=== PATIENT | male | born 1975 | race Caucasian/White ===

== ENCOUNTER 2016-11-01 18:54 | Emergency (ER) | payer OTHER ==
[2016-11-01 19:08] VITALS: BP 132/82; PULSE 64; RESP 16; TEMP 97.9; O2SAT 94
--- NOTE | 2016-11-01 19:08 | EDPHY ---
H & P Time Seen by Provider: 11/01/16 19:03 HPI/ROS: CHIEF COMPLAINT: LEFT ANKLE PAIN HISTORY OF PRESENT ILLNESS: The patient is a 41-year-old man who comes to the emergency department complaining of left ankle pain to the medial malleolus. He states that 1 week ago he was lifting a heavy pool filter when it fell and glanced off the medial malleolus. He had some bruising at the time. He has continued to walk. He is becoming more concerned because it does not feel better evern after a week. Normal sensation and pulses distally. No tingling or numbness. Denies other injuries. REVIEW OF SYSTEMS: Constitutional: denies: chills, fever, recent illness, recent injury EENTM: denies: blurred vision, double vision, nose congestion Respiratory: denies: cough, shortness of breath Cardiac: denies: chest pain, irregular heart rate, lightheadedness, palpitations Gastrointestinal/Abdominal: denies: abdominal pain, diarrhea, nausea, vomiting, blood streaked stools Genitourinary: denies: dysuria, frequency, hematuria, pain Musculoskeletal: See HPI Skin: denies: lesions, rash, jaundice, bruising Neurological: denies: headache, numbness, paresthesia, tingling, dizziness, weakness Hematologic/Lymphatic: denies: blood clots, easy bleeding, easy bruising Immunologic/allergic: denies: HIV/AIDS, transplant EXAM: GENERAL: Well-appearing, well-nourished and in no acute distress. HEAD: Atraumatic, normocephalic. EYES: Pupils equal round and reactive to light, extraocular movements intact, sclera anicteric, conjunctiva are normal. ENT: TMs normal, nares patent, oropharynx clear without exudates. Moist mucous membranes. NECK: Normal range of motion, supple without lymphadenopathy or JVD. LUNGS: Breath sounds clear to auscultation bilaterally and equal. No wheezes rales or rhonchi. HEART: Regular rate and rhythm without murmurs, rubs or gallops. ABDOMEN: Soft, nontender, normoactive bowel sounds. No guarding, no rebound. No masses appreciated. BACK: No CVA tenderness, no spinal tenderness, step-offs or deformities EXTREMITIES: Mild bruising distal to the medial malleolus of the left ankle. Minimal tenderness to the malleolus. No abrasion or laceration. No foot pain or tenderness. Ambulates without difficulty. NEUROLOGICAL: Cranial nerves II through XII grossly intact. Normal speech, normal gait. 5/5 strength, normal movement in all extremities, normal sensation PSYCH: Normal mood, normal affect. SKIN: Warm, dry, normal turgor, no visible rashes or lesions. Source: Patient Exam Limitations: No limitations - Personal History Current Tetanus/Diphtheria Vaccine: Yes - Medical/Surgical History Hx Asthma: No Hx Chronic Respiratory Disease: No Hx Diabetes: No Hx Cardiac Disease: No Hx Renal Disease: No Hx Cirrhosis: No Hx Alcoholism: No Hx HIV/AIDS: No Hx Splenectomy or Spleen Trauma: No - Family History Significant Family History: No pertinent family hx - Social History Smoking Status: Current some day smoker Alcohol Use: Sober Drug Use: None Constitutional: Initial Vital Signs Temperature (C) 36.6 C 11/01/16 18:55 Heart Rate 64 11/01/16 18:55 Respiratory Rate 16 11/01/16 18:55 Blood Pressure 132/82 H 11/01/16 18:55 O2 Sat (%) 94 11/01/16 18:55 O2 Delivery Mode Room Air Allergies/Adverse Reactions: No Known Allergies Allergy (Unverified 11/01/16 19:10) Home Medications: Medication Instructions Recorded NK [No Known Home Meds] 11/01/16 Medical Decision Making - Diagnostics Imaging: Discussed imaging studies w/ coater associate Radiologist ED Course/Re-evaluation: Discussed the x-ray results. The patient is reassured. I offered a wrap her pain medication which she declines. He will take ibuprofen. Discussed indications for returning. Differential Diagnosis: Partial list of the Differential diagnosis considered include but were not limited to; contusion, sprain, fracture and although unlikely based on the history and physical exam, I also considered vascular injury, nerve injury. I discussed these differential diagnoses and the plan with the patient as well as the usual and expected course. The patient understands that the diagnosis is provisional and that in medicine we are not always correct and that further workup is often warranted. Usual and customary warnings were given. All of the patient's questions were answered. The patient was instructed to return to the emergency department should the symptoms at all worsen or return, otherwise to followup with the physician as we discussed. Departure - Departure Disposition: Home, Routine, Self-Care Clinical Impression: Contusion of left ankle Qualifiers: Encounter type: initial encounter Qualified Code(s): S90.02XA - Contusion of left ankle, initial encounter Condition: Fair Instructions: Foot Contusion (ED) Referrals: Chrissie Kendall MD [[facility] [place]] - As per Instructions
== END 2016-11-01 19:35 | disposition home or self-care (01) ==
LOC: CED 18:54
DX: S90.02XA Contusion of left ankle, initial encounter (principal); F17.200 Nicotine dependence, unspecified, uncomplicated; W20.8XXA Other cause of strike by thrown, projected or falling object, initial encounter
CPT/HCPCS: 73610-PO

== ENCOUNTER → 2016-12-30 | Outpatient (CLI) | payer OTHER | LOC: FIMAGING 09:13 | PROVIDERS: ATTEND Internal Medicine Hematology & Oncology | DX: R19.09 Other intra-abdominal and pelvic swelling, mass and lump (principal); Z85.820 Personal history of malignant melanoma of skin ==

== ENCOUNTER 2017-07-29 18:08 | Emergency (ER) | payer OTHER ==
[2017-07-29 18:19] VITALS: BP 133/85
--- NOTE | 2017-07-29 18:25 | EDPHY ---
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 He does not think that he hit the bone. Bleeding is controlled. This happened at work just prior to arrival. REVIEW OF SYSTEMS: Constitutional: denies: chills, fever, recent illness, recent injury EENTM: denies: blurred vision, double vision, nose congestion Respiratory: denies: cough, shortness of breath Cardiac: denies: chest pain, irregular heart rate, lightheadedness, palpitations Gastrointestinal/Abdominal: denies: abdominal pain, diarrhea, nausea, vomiting, blood streaked stools Genitourinary: denies: dysuria, frequency, hematuria, pain Musculoskeletal: denies: joint pain, muscle pain Skin: See HPI Neurological: denies: headache, numbness, paresthesia, tingling, dizziness, weakness Hematologic/Lymphatic: denies: blood clots, easy bleeding, easy bruising Immunologic/allergic: denies: HIV/AIDS, transplant EXAM: GENERAL: Well-appearing, well-nourished and in no acute distress. HEAD: Atraumatic, normocephalic. EYES: Pupils equal round and reactive to light, extraocular movements intact, sclera anicteric, conjunctiva are normal. ENT: TMs normal, nares patent, oropharynx clear without exudates. Moist mucous membranes. NECK: Normal range of motion, supple without lymphadenopathy or JVD. LUNGS: Breath sounds clear to auscultation bilaterally and equal. No wheezes rales or rhonchi. HEART: Regular rate and rhythm without murmurs, rubs or gallops. ABDOMEN: Soft, nontender, normoactive bowel sounds. No guarding, no rebound. No masses appreciated. BACK: No CVA tenderness, no spinal tenderness, step-offs or deformities EXTREMITIES: Normal range of motion, no pitting or edema. No clubbing or cyanosis. NEUROLOGICAL: Cranial nerves II through XII grossly intact. Normal speech, normal gait. 5/5 strength, normal movement in all extremities, normal sensation PSYCH: Normal mood, normal affect. SKIN: Puncture wound to left index finger over the distal phalanx fat pad. No deformity. No visible foreign body. Source: Patient Exam Limitations: No limitations - Personal History Current Tetanus Diphtheria and Acellular Pertussis (TDAP): Yes Tetanus Vaccine Date: within 5 serafin - Medical/Surgical History Hx Asthma: No Hx Chronic Respiratory Disease: No Hx Diabetes: No Hx Cardiac Disease: No Hx Renal Disease: No Hx Cirrhosis: No Hx Alcoholism: No Hx HIV/AIDS: No Hx Splenectomy or Spleen Trauma: No Other PMH: I. HERNIAS, REMOVAL of MELANOMA L PRE TIBIA and BACK AREA - Family History Significant Family History: No pertinent family hx - Social History Smoking Status: Current some day smoker Alcohol Use: Sober Drug Use: None Constitutional: Initial Vital Signs Temperature (C) 36.6 C 07/29/17 18:14 Heart Rate 78 07/29/17 18:14 Respiratory Rate 18 07/29/17 18:14 Blood Pressure 133/85 H 07/29/17 18:14 O2 Sat (%) 95 07/29/17 18:14 O2 Delivery Mode Room Air Allergies/Adverse Reactions: No Known Allergies Allergy (Unverified 07/29/17 18:13) Home Medications: Medication Instructions Recorded Flomax 07/29/17 Medical Decision Making - Diagnostics Imaging Results: Imaging Impressions Finger X-Ray 07/29/17 18:24 Impression: 1. No fracture. 2. Possible punctate radiopaque foreign object at the palmar base of the distal phalanx. Findings discussed with CATE DOLAN 07/29/2017 at 18:45. Imaging: I viewed and interpreted images myself (No fracture) ED Course/Re-evaluation: 6:40 p.m. We discussed the x-ray results. The patient's wound was cleaned and bandaged. He will follow up with worker's Comp. He declines further workup or testing at this time. Differential Diagnosis: Partial list of the Differential diagnosis considered include but were not limited to; puncture wound, foreign and although unlikely based on the history and physical exam, I also considered fracture, nail bed injury. I discussed these differential diagnoses and the plan with the patient as well as the usual and expected course. The patient understands that the diagnosis is provisional and that in medicine we are not always correct and that further workup is often warranted. Usual and customary warnings were given. All of the patient's questions were answered. The patient was instructed to return to the emergency department should the symptoms at all worsen or return, otherwise to followup with the physician as we discussed. Departure - Departure Disposition: Home, Routine, Self-Care Clinical Impression: Puncture wound of right index finger Condition: Fair Instructions: Puncture Wound (ED) Referrals: NONE *PRIMARY CARE P,. [Primary Care Provider] - As per Instructions
== END 2017-07-29 19:00 | disposition home or self-care (01) ==
LOC: CED 18:08
DX: S61.230A Puncture wound without foreign body of right index finger without damage to nail, initial encounter (principal); F17.200 Nicotine dependence, unspecified, uncomplicated; Z85.820 Personal history of malignant melanoma of skin; W31.2XXA Contact with powered woodworking and forming machines, initial encounter; Y92.69 Other specified industrial and construction area as the place of occurrence of the external cause; Y99.0 Civilian activity done for income or pay; Y93.89 Activity, other specified
CPT/HCPCS: 73140-PO